=== PATIENT | male | born 1995 | race African-American/Black ===

== ENCOUNTER 2024-04-07 12:55 | Emergency (ER) | payer SELFPAY ==
[2024-04-07] MEDS ORDERED: hydrOXYzine 25 MG TAB ONE (13:39)
[2024-04-07 13:55] LABS: #Basophils 0.03 10x3/uL (0.0-0.2); #Eosinphils Less than 0.03 10x3/uL (0.0-0.7); %Basophils 0.6 % (0.0-1.0); %Eosinophils 0.2 % (0.0-10.0); %Lymphocytes 32.7 % (21.0-51.0); %Monocytes 6.8 % (0.0-10.0); %Neutrophils 59.5 % (42.0-75.0); Hematocrit 44.1 % (42.0-52.0); Hemoglobin 14.4 g/dL (14.0-18.0); Mean Corpuscular HGB CONC 32.7 g/dL (32.0-36.0); Mean Corpuscular Hemoglobin 29.1 pg (27.0-31.0); Mean Corpuscular Volume 89.1 fL (78.0-98.0); Mean Platelet Volume 9.8 fL (7.4-10.4); Platelet Count 263 10x3/uL (130-400); RBC Distribution Width 13.2 % (11.5-14.5); Red Blood Cell (RBC) Count 4.95 mill/uL (4.70-6.10)
[2024-04-07 14:07] LABS: ALT (SGPT) 24 U/L (8-55); AST (SGOT) 20 U/L (5-34); Albumin 4.2 g/dL (3.5-5.0); Alkaline Phosphatase 92 U/L (40-110); Anion Gap 14 mmol/L (10-20); BUN (Urea Nitrogen) 7 mg/dL (8.9-20.6); Bilirubin, Total 0.8 mg/dL (0.2-1.2); Calc. Creatinine Clearance 0 mL/min (70-130); Calcium 9.6 mg/dL (7.8-10.44); Carbon Dioxide 22 mmol/L (22-29); Chloride 105 mmol/L (98-107); Estimated GFR 122; Glucose 123 mg/dL (70-105); Potassium 3.5 mmol/L (3.5-5.1); Protein, Total 8.2 g/dL (6.0-8.3); Sodium 137 mmol/L (136-145)
[2024-04-07 14:10] LABS: Troponin I Less than 0.010 ng/mL (< 0.028)
== END 2024-04-07 15:12 | disposition home or self-care (01) ==
LOC: ERS 12:55
DX: R55 Syncope and collapse (principal); F41.9 Anxiety disorder, unspecified; B20 Human immunodeficiency virus [HIV] disease; Z55.6 Problems related to health literacy
CPT/HCPCS: 70450; 71045; 80053; 84484; 85025; 93005